=== PATIENT | female | born 1995 | race Caucasian/White ===

== ENCOUNTER 2020-03-27 14:56 | Outpatient (REF) | payer OTHER, SELFPAY ==
--- NOTE | 2020-03-27 13:30 | PAPFT_PTH ---
PATIENT: Ita Arias LOC: [facility] U#:[id number] AGE/SX: 24/F ROOM: RE03/27/[address]: SOLOMON Monson : 1995 BED: DIS: 03/27/2020 SPEC #: [id number] RECD: 03/27/20 18:02 STATUS: CHANEL NOLAN #: [id number] JENNIFER: 03/27/20 13:[address]: Suzanne Fallon DEPT: [facility] Cytology RECD BY: Kajal Woodward ENTERED: 03/27/20 18:03 SP TYPE: PAPFT SILVA DR: Adán Maza MD Tissues: 1 - CX/ENDOCX FOR PAP SMEARS Procedures: PAP THIN PREP/U[facility] Screening Comments: [id number]
[2020-03-30 15:34] LABS: Chlamydia Result Negative (Negative); GC Result Negative (Negative)
== END 2020-03-27 15:16 ==
LOC: LBN 14:56
PROVIDERS: PCP Pediatrics; Visit Provider Nurse Practitioner Family
DX: R87.619 Unspecified abnormal cytological findings in specimens from cervix uteri; Z11.51 Encounter for screening for human papillomavirus (HPV)
CPT/HCPCS: 87491; 87591; 88142

== ENCOUNTER 2022-02-18 16:44 | Emergency (ER) | payer OTHER, SELFPAY ==
[2022-02-18 16:46] VITALS: BP 119/70; PULSE 76; RESP 14; TEMP 36.7; O2SAT 100
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
[2022-02-18] MEDS: Cephalexin 500 MG CAP PO (17:48)
== END 2022-02-18 18:08 | disposition home or self-care (01) ==
PROVIDERS: Emergency Provider Physician Assistant
DX: S81.012A Laceration without foreign body, left knee, initial encounter (principal); V19.9XXA Pedal cyclist (driver) (passenger) injured in unspecified traffic accident, initial encounter
CPT/HCPCS: 12002

== ENCOUNTER 2022-03-15 11:42 | Outpatient (REF) | payer OTHER, SELFPAY | END 2022-03-15 11:43 | disposition home or self-care (01) | LOC: LBN 11:42 | PROVIDERS: Visit Provider Nurse Practitioner Family | DX: R30.0 Dysuria (principal) | CPT/HCPCS: 87086 ==

== ENCOUNTER 2022-08-30 17:15 | Emergency (ER) | payer SELFPAY ==
[2022-08-30 17:25] VITALS: BP 115/82; PULSE 72; RESP 16; TEMP 36.3; O2SAT 100
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
[2022-08-30] MEDS: Doxycycline Hyclate 100 MG CAP PO (18:25)
[2022-09-01 12:01] LABS: COVID-19 RT-PCR UVMMC Result Negative (Negative)
--- NOTE | 2022-09-01 17:41 | NUR.NOTE ---
gave patient her neg covid results
== END 2022-08-30 18:27 | disposition home or self-care (01) ==
PROVIDERS: Emergency Provider Student in an Organized Health Care Education/Training Program
DX: J18.9 Pneumonia, unspecified organism (principal); J02.9 Acute pharyngitis, unspecified
CPT/HCPCS: 87880; 99283; U0003; 87081

== ENCOUNTER 2022-09-22 18:23 | Emergency (ER) | payer SELFPAY ==
[2022-09-22 18:29] VITALS: BP 119/67; PULSE 98; RESP 16; TEMP 37.5; O2SAT 99
--- NOTE | 2022-09-22 19:23 | ED.GENADUL_ITS ---
Discharge Plan Disposition Patient Disposition: Home Condition: Stable Discharge Details Clinical Impression: Influenza A Primary Care Provider: None,None ED Provider: Kajal Antoine Home Meds and New Rx's Prescriptions: No Action No Known Home Meds Discharge Instructions Additional Instructions: Take ibuprofen 600 mg every 8 hours with food Take Tylenol 650 mg every 4-6 hours Increase your fluid hydration You may take cough and cold medication at your discretion, make sure you do not take more than 1 g of Tylenol every 6 hours Please return with new or worsening complaints You may return to work once you are fever free for 24 hours and feeling symptomatically improved Stand Alone Forms: Work Release Discharge Data Discharge Date/Time-TO BE ENTERED AT DEPARTURE: 09/22/22 20:00 Medical Decision Making This 27-year-old female presents with flulike syndrome, testing influenza A po sitive Vitals are stable, no hypoxia, alert and oriented and otherwise appears well Patient is not immunosuppressed there is no clear indication for tetanus at this time, we discussed risk benefit No indication for antibiotics Work note supplied Supportive care recommended Antiemetics applied Return precautions reviewed and patient expressed understanding HPI General Date/Time Provider Initiated Documentation: 09/22/22 19:23 . HPI Narrative: This 19-year-old female reports with symptoms that started yesterday of upper respiratory congestion, fever, chills, nausea, vomiting. She states she was in close contact with somebody with influenza. Patient is otherwise healthy and denies chance of . Denies any shortness of breath. Related Data Home Medications Medication Instructions Recorded Confirmed Unknown [No Known Home Meds] 09/22/22 09/22/22 Allergies Allergy/AdvReac Type Severity Reaction Status Date / Time No Known Allergies Allergy Unverified 09/22/22 18:32 General Stated Complaint: RespSymp ANGELICA: 4 Review of Systems All systems reviewed & are unremarkable except as noted in HPI and below PFSH All Active Problems (Updated 09/22/22 @ 19:27 by SUDARSHAN May) Pneumonia (Acute) Pharyngitis (Acute) Influenza A (Acute) Contraception (Acute) Anxiety (Acute 06/07/12) Family History Mother Thyroid disorder Sister Thyroid disorder Social History Smoking/Tobacco Use Status: Never Smoking risk assessment performed?: Yes Alcohol Intake: current Drug use: Never Substance use type: does not use Do you feel safe at home: Yes Do you feel safe in your relationship?: Yes Exam Narrative Exam Narrative: Alert and oriented, lungs clear to auscultation, no respiratory distress Mild tachycardia without murmur Nontender abdominal exam, no flank tenderness, no obvious rashes or lesions, no meningismus, uvula midline Alert and oriented x4 we will Const General: cooperative, comfortable and no acute distress Orientation: alert and oriented x3 Course Vital Signs Vital signs: Vital Signs Temperature 37.5 C 09/22/22 18:29 Pulse 98 H 09/22/22 18:29 Respiratory Rate 16 09/22/22 18:29 Blood Pressure 119/67 09/22/22 18:29 Pulse Oximetry 99 09/22/22 18:29 Temperature 37.5 C 09/22/22 18:29 Temperature Source Tympanic 09/22/22 18:29 Pulse 98 H 09/22/22 18:29 Respiratory Rate 16 09/22/22 18:29 Respiratory Effort 09/22/22 18:31 Respiratory Depth Normal 09/22/22 18:31 Blood Pressure 119/67 09/22/22 18:29 Blood Pressure Position Sitting 09/22/22 18:29 Pulse Oximetry 99 09/22/22 18:29 Oxygen Delivery Method Room Air 09/22/22 18:29 Oxygen Flow Rate 0 09/22/22 18:29 Pain Level 4 09/22/22 18:29
--- NOTE | 2022-09-22 19:24 | NUR.NOTE ---
Nursing Note: ED rapid test done, pt + Flu NARD awaiting further eval
[2022-09-22] MEDS: Ibuprofen 600 MG TAB PO (19:31)
--- NOTE | 2022-09-25 11:13 | NUR.NOTE ---
Nursing Note: Mother called regarding this patient her daughter. SHe feels that she should have been given antibiotics at the visit. I discussed with her that we cannot discuss her daughters visit without her permission. Did tell her that if her symptoms are getting worse that she should be re-evaluated. Mother stated of course you do, that way it cost her daughter more money. Mother is going to have daughter call to given permission.
== END 2022-09-22 20:00 | disposition home or self-care (01) ==
PROVIDERS: Emergency Provider Physician Assistant
DX: J10.1 Influenza due to other identified influenza virus with other respiratory manifestations (principal)
CPT/HCPCS: 99282; 99283

== ENCOUNTER 2022-12-12 14:25 | Emergency (ER) | payer SELFPAY ==
[2022-12-12 14:29] VITALS: BP 121/82; PULSE 96; RESP 16; TEMP 36.3; O2SAT 100
--- NOTE | 2022-12-12 14:50 | W.ED.GENAD ---
Discharge Plan Disposition Patient Disposition: Home Condition: Good Discharge Details Clinical Impression: URI (upper respiratory infection), Bronchitis Primary Care Provider: None,None ED Provider: Adán Clements Home Meds and New Rx's Prescriptions: New azithromycin [Zithromax] 250 mg tablet See Rx Instructions .ROUTE .COMPLEX Qty: 6 0RF Rx Instructions: For 250 mg dose pack: take 500 mg today (day 1), then 250 mg for 4 days (days 2-5) loratadine 10 mg tablet 10 mg PO DAILY Qty: 20 0RF budesonide-formoterol [Symbicort] 160-4.5 mcg/actuation HFA aerosol inhaler 2 puff inhalation ONCE Qty: 10.2 0RF Discharge Instructions Instructions: Acute Bronchitis (ED) Additional Instructions: At this time your symptoms are concerning for mild bronchitis and potential small pneumonia as noted on ultrasound. Please take the azithromycin antibiotic as directed. Please take the inhaler, 2 puffs every 12 hours as directed. Please take the loratadine 10 mg every 24 hours to help decrease runny nose and congestion. These have been sent to your pharmacy on file. Please also take a few Tums with every meal to help with your stomach irritation. If you notice any worsening of your symptoms, or any new symptoms such as vomiting, diarrhea, fever, chills, shortness of breath, chest pain, numbness, weakness, or fainting , please return immediately to the emergency department for reevaluation. Please follow up with your primary care provider as soon as possible for reassessment and reevaluation. As always, it was a pleasure participating in your medical care today. Medical Decision Making 27-year-old female with no significant past medical history who did have influenza around 1 to 2 months ago presents today for continued congestion, runny nose, mild cough. She has not had any fever for the last month or so but these other symptoms are continued. She denies any chest pain or shortness of breath. She denies any headache. She does not smoke. No other complaints at this time. She feels like she just cannot get over her symptoms. Her symptoms are improved with TheraFlu [id number] treatment. Exam demonstrates a well-appearing female, she does have mild runny nose, minimal questionable crackle in left upper lung field. Bedside ultrasound was performed and does demonstrate a very small amount of consolidation and B-lines in the left upper to midlung field. No other large significant pneumonia otherwise. I suspect she may have a mild lingering community-acquired pneumonia versus walking pneumonia from an atypical etiology. We will treat with azithromycin, loratadine for her runny nose and congestion, and Qvar to help with her persistent cough which is likely stimulated a bit of reactive airway versus pulmonary inflammation. We will send these to the pharmacy for pickup. Discussed red flags for which to return. I have extensively reviewed the treatment plan and discharge instructions with the patient. I have addressed all patient concerns at this time. The patient was made aware of what symptoms to monitor for that would warrant a return to the emergency department. Discussed the plan with the patient, they demonstrate verbal understanding and agreement with our assessment and plan at this time. The documentation in this chart was dictated using [employer] dictation software. Please excuse any dictation errors. HPI General Date/Time Provider Initiated Documentation: 12/12/22 14:36. HPI Narrative: 27-year-old female with no significant past medical history who did have influenza around 1 to 2 months ago presents today for continued congestion, runny nose, mild cough. She has not had any fever for the last month or so but these other symptoms are continued. She denies any chest pain or shortness of breath. She denies any headache. She does not smoke. No other complaints at this time. She feels like she just cannot get over her symptoms. Her symptoms are improved with TheraFlu [id number] treatment. Related Data Home Medications Medication Instructions Recorded Confirmed azithromycin 250 mg tablet See Rx Instructions PO .COMPLEX #6 12/12/22 (Zithromax) tabs budesonide-formoterol HFA 160 2 puff inhalation ONCE #10.2 grams 12/12/22 mcg-4.5 mcg/actuation aerosol inhaler (Symbicort) loratadine 10 mg tablet 10 mg PO DAILY #20 tabs 12/12/22 Previous Rx's Medication Instructions Recorded azithromycin 250 mg tablet See Rx Instructions PO .COMPLEX #6 12/12/22 (Zithromax) tabs budesonide-formoterol HFA 160 2 puff inhalation ONCE #10.2 grams 12/12/22 mcg-4.5 mcg/actuation aerosol inhaler (Symbicort) loratadine 10 mg tablet 10 mg PO DAILY #20 tabs 04/10/23 Allergies Allergy/AdvReac Type Severity Reaction Status Date / Time No Known Allergies Allergy Unverified 12/12/22 14:34 General Stated Complaint: Nausea/Vomit/Diar ANGELICA: 4 Review of Systems All systems reviewed & are unremarkable except as noted in HPI and below PFSH All Active Problems URI (upper respiratory infection) (Acute) Bronchitis (Acute) Contraception (Acute) Anxiety (Acute 06/07/12) Family History Mother Thyroid disorder Sister Thyroid disorder Social History Smoking/Tobacco Use Status: Never Smoking risk assessment performed?: Yes Alcohol Intake: current Drug use: Never Substance use type: does not use Do you feel safe at home: Yes Do you feel safe in your relationship?: Yes Exam Narrative Exam Narrative: 1.Const: Well-nourished, Well-developed, appearing stated age 2.Eyes: PERRL, no conjunctival injection, and symmetrical lids. 3.ENT: Atraumatic external nose and ears. Moist MM. Neck: Symmetric, trachea midline, No thyromegaly. 4.CVS: +S1/S2, No murmurs or gallops. Peripheral pulses 2+ and equal in all extremities. Brisk capillary refill in all extremities. 5.RESP: Unlabored respiratory effort. Questionable minimal crackle in the left upper lung field. 6.GI: Soft, Nontender/Nondistended, No hepatosplenomegaly. No guarding or rebound. 7.MSK: Normocephalic/Atraumatic, Extremities w/o deformity or ttp No cyanosis or clubbing, Normal movement of all extremities 8.Skin: Warm, Dry. No rashes or lesions. 9.Neuro: roofing technician II-XII grossly intact. Sensation grossly intact, no focal neurologic deficits. 10.Psych: (AAO) x3. Appropriate mood and affect Course Vital Signs Vital signs: Vital Signs Temperature 36.3 C L 12/12/22 14:29 Pulse 96 H 12/12/22 14:29 Respiratory Rate 16 12/12/22 14:29 Blood Pressure 121/82 12/12/22 14:29 Pulse Oximetry 100 12/12/22 14:29 Temperature 36.3 C L 12/12/22 14:29 Temperature Source Tympanic 12/12/22 14:29 Pulse 96 H 12/12/22 14:29 Respiratory Rate 16 12/12/22 14:29 Respiratory Effort Normal 12/12/22 14:32 Blood Pressure 121/82 12/12/22 14:29 Blood Pressure Position Sitting 12/12/22 14:29 Pulse Oximetry 100 12/12/22 14:29 Oxygen Delivery Method Room Air 12/12/22 14:29 Oxygen Flow Rate 0 12/12/22 14:29 Pain Level 0 12/12/22 14:29 PAWSS Have you Been Recently Intoxicated or Drunk Within the Last 30 days?: No Have you Ever Experienced Previous Episodes of Alcohol Withdrawal?: No Have you ever Experienced Withdrawal Seizures?: No Have you ever Experienced Delirium Tremens(DT)s?: No Have you ever undergone Alcohol Rehabilitation Treatment (i.e, inpt ot outpatient treatment programs)?: No Have you ever Experienced Blackouts?: No Have you ever Combined Alcohol with other Downers within the last 90 days?: No Have you ever Combined Alcohol with any other Substance of Abuse during the last 90 days?: No Result: 0
== END 2022-12-12 15:01 | disposition home or self-care (01) ==
PROVIDERS: Emergency Provider Student in an Organized Health Care Education/Training Program
DX: J06.9 Acute upper respiratory infection, unspecified (principal); J40 Bronchitis, not specified as acute or chronic
CPT/HCPCS: 99283

== ENCOUNTER 2025-02-26 18:09 | Emergency (ER) | payer SELFPAY ==
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
[2025-02-26 18:19] VITALS: BP 120/60; PULSE 80; RESP 16; TEMP 36.6; O2SAT 100
[2025-02-26 18:37] LABS: Abs Immature Grans 0.03 10^3/uL (0.0-0.06); Absolute Basophil Count 0.02 10^3/uL (0.0-0.2); Absolute Lymphocyte Count 1.56 10^3/uL (1.2-3.4); Absolute Monocyte Count 0.37 10^3/uL (0.1-0.8); Absolute Neutrophil Count 4.38 10^3/uL (1.2-6.7); Basophils % 0.3 %; Eosinophils % 1.5 %; HCT 36.6 % (36.0-46.0); HGB 12.4 g/dL (11.2-15.7); Immature Grans % 0.5 %; Lymphocytes % 24.1 %; MCHC 33.9 % (32.0-36.0); MCV 95 fL (80-95); MPV 8.5 fL (8.0-11.0); Monocytes % 5.7 %; Neutrophils % 67.9 %; Platelet Count 298 10^3/uL (130-400); RBC 3.87 10^6/uL (3.93-5.22); RDW 12.1 % (11.7-14.6); RDW-SD 42.3 fL; WBC 6.46 10^3/uL (4.4-10.8)
[2025-02-26] MEDS: MORPHine 4 MG/ML SYR IVP (18:52)
[2025-02-26] MEDS: ceFAZolin 2 GM/50 ML BAG IVPB (18:53)
[2025-02-26] MEDS: Ondansetron 4 MG/2 ML VIAL IVP (18:53)
[2025-02-26 18:56] LABS: HCG Qual (Serum) Negative
[2025-02-26 19:00] LABS: ALT 24 U/L (14-59); AST 20 U/L (15-37); Albumin 4.2 g/dL (3.4-5.0); Alkaline Phosphatase 112 U/L (46-116); Anion Gap 10.2 mmol/L (3-11); BUN 14 mg/dL (7-18); Bilirubin, Total 0.3 mg/dL (0.2-1.0); CO2 26.8 mmol/L (21.0-32.0); CREATININE 0.6 mg/dL (0.55-1.02); Calcium 9.1 mg/dL (8.5-10.1); Chloride 101 mmol/L (98-107); Estimated GFR 123.76 (mL/min/1.73m2); Glucose 89 mg/dL (74-106); Potassium 3.5 mmol/L (3.5-5.1); Sodium 138 mmol/L (136-145)
[2025-02-26 19:01] LABS: Creatine Kinase 85 U/L (26-192); Lipase 29 U/L (<78)
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
[2025-02-26] MEDS: Mupirocin 2% Oint. 22 GM TUBE TP (21:06)
[2025-02-26 21:12] VITALS: BP 120/60; PULSE 80; RESP 16; TEMP 36.6; O2SAT 100
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
== END 2025-02-26 21:13 | disposition home or self-care (01) ==
PROVIDERS: Emergency Provider Emergency Medicine
DX: S81.811A Laceration without foreign body, right lower leg, initial encounter (principal); V29.498A Other motorcycle driver injured in collision with other motor vehicles in traffic accident, initial encounter
CPT/HCPCS: 99283; 99284; 12034; 12002; 96374; 96375; 36415; 73562; 80053; 82550; 83690; 73590; 84703; 85025; 85610; J0690; J2270; J2405